=== PATIENT | male | born 1990 | race Two or more races ===

== ENCOUNTER 2018-01-22 11:16 | Emergency (ER) | payer MEDICAID, OTHER ==
[~2018-01-22] VITALS: Ht 180.3 cm; Wt 75.0 kg
[2018-01-22 11:21] VITALS: BP 112/74
[2018-01-22] MEDS ORDERED: HYDROcodone/acetaminophen 10/325mg tab PO ONE (13:00)
[2018-01-22] MEDS ORDERED: ibuprofen 200mg tablet PO ONE (13:00)
== END 2018-01-22 14:04 | disposition home or self-care (01) ==
LOC: ER 11:17
DX: S62.344A Nondisplaced fracture of base of fourth metacarpal bone, right hand, initial encounter for closed fracture (principal); W22.8XXA Striking against or struck by other objects, initial encounter; Y93.89 Activity, other specified; Y92.89 Other specified places as the place of occurrence of the external cause; Y99.8 Other external cause status
CPT/HCPCS: 29125; 73130; 99284; A4565; A6449

== ENCOUNTER 2018-01-26 09:09 | Outpatient (CLI) | payer MEDICAID, OTHER ==
[2018-01-26 09:12] VITALS: BP 127/80
== END 2018-01-26 10:00 | disposition home or self-care (01) ==
LOC: ORTHO 09:09
PROVIDERS: ATTEND Nurse Practitioner Family
DX: S62.344A Nondisplaced fracture of base of fourth metacarpal bone, right hand, initial encounter for closed fracture (principal); W22.01XA Walked into wall, initial encounter; Y93.89 Activity, other specified; Y92.019 Unspecified place in single-family (private) house as the place of occurrence of the external cause
CPT/HCPCS: 99213

== ENCOUNTER 2018-02-21 09:11 | Outpatient (CLI) | payer MEDICAID, OTHER ==
[2018-02-21 09:15] VITALS: BP 113/61
== END 2018-02-21 09:36 | disposition home or self-care (01) ==
LOC: ORTHO 09:11
PROVIDERS: ATTEND Nurse Practitioner Family
DX: S62.344D Nondisplaced fracture of base of fourth metacarpal bone, right hand, subsequent encounter for fracture with routine healing (principal); X58.XXXD Exposure to other specified factors, subsequent encounter
CPT/HCPCS: 73130; 99213